=== PATIENT | female | born 1970 | race Caucasian/White ===

== ENCOUNTER 2023-04-26 07:19 | Outpatient (CLI) | payer BC, SELFPAY ==
--- OUTSIDE RECORDS SUMMARY | 2023-04-26 07:28 | XMS_ITS | Encounter Summary ---
Author Name Unknown Organization [facility] Address [address] [place] [address]. [place] [address] Care Team Providers Care Crane Ladle Person Name Role Phone Omi Steven MD Primary Care Provider + Reason for Visit * Auth/Cert (Routine) Specialty Diagnoses / Procedures Referred By Virgilio t Referred To Contact Surgery Diagnoses Interstitial cystitis PFD (pelvic floor dysfunction) Interstitial cystitis [N30.10] PFD (pelvic floor dysfunction) [M62.89] Procedures [place] CYSTOURETHROSCOPY INJ CHEMODENERVATION BLADDER CYSTOSCOPIC TRIAMCINOLONE KENALOG INJECTIONS [facility] [address] [place] [address] Referral ID Status Reason Start Date Expiration Date Visits Re quested Visits Authorized [id number] 1 1 Encounter Details Date Type Department Care Team (Latest Contact Info) Description 07/09/2022 1:32 PM CDT - 07/09/2022 5:52 PM CDT Hospital Encounter [facility] Phase II [address] [place] [address] Christopher Mccullough MD [address] [place] [address] S/P urological surgery (Primary Dx) Discharge Disposition: Home or Self Care Social History Tobacco Use Types Packs/Day Years Used Date Smoking Tobacco: Never Smokeless Tobacco: Never Alcohol Use Standard Drinks/Week Comments Yes 0 (1 standard drink = 0.6 oz pure alcohol) Alcoholic Drinks/day: social-last drink last Wednesday Sex and Gender Information Value Date Recorded Sex Assigned at Not on file Gender Identity Not on file Sexual Orientation Not on file COVID-19 Exposure Response Date Recorded In the last 10 days, have yo u been in contact with someone who was confirmed or suspected to have Coronavirus/COVID-19? No / Unsure 07/08/2022 4:26 PM CDT documented as of this encounter Last Filed Vital Signs Vital Sign Reading Time Taken Comments Blood Pressure 110/67 07/09/2022 5:03 PM CDT Pulse 68 07/09/2022 5:03 PM CDT Temperature 36.4 ??C (97.5 ??F) 07/09/2022 4 :20 PM CDT Respiratory Rate 17 07/09/2022 5:03 PM CDT Oxygen Saturation 100% 07/09/2022 5:0 3 PM CDT Inhaled Oxygen Concentration - - Weight 62.1 kg (136 lb 14.4 oz) 023 1:34 PM CDT Height 168 cm (5' 6.14) 06/22/2022 7:0 0 AM CDT Per [facility] Body Mass Index 22 06/22/2022 7:00 AM CDT documented in this encounter Discharge Instructions * Attachments The following attachments cannot be sent through Care Everywhere. * After Your Surgery: Discharge Instructions (Amharic) documented in this encounter Medications at Time of Discharge Medication Sig Dispensed Refills Start Date End Date estradiol (ESTRACE) 1 MG tablet Take 1 mg by mouth daily 0 hydrocortisone 2.5 % cream Apply topically 2 times daily 0 ibuprofen (ADVIL/MOTRIN) 800 MG tabletIndications:S/ P urological surgery Take 1 tablet (800 mg) by mouth every 6 hours as needed for other (mild and/or inflammatory pain) 30 tablet 0 07/09/2022 loratadine 10 MG capsule Take 10 mg by mouth daily 0 meclizine 25 MG CHEW Take 25 mg by mouth 3 times daily as needed for dizziness 0 ondansetron (ZOFRAN ODT) 4 MG ODT tabIndications:S/P urological surgery Take 1 tablet (4 mg) by mouth every 8 hours as needed for nausea 4 tablet 0 07/09/2022 oxyCODONE (ROXICODONE) 5 MG tabletIndications:S/ P urological surgery Take 1-2 tablets (5-10 mg) by mouth every 4 hours as needed for moderate to severe pain 10 tablet 0 07/09/2022 progesterone (PROMETRIUM) 100 MG capsule Take 100 mg by mouth At Bedtime 0 tiZANidine (ZANAFLEX) 4 MG tablet Take 4 mg by mouth nightly as needed for muscle spasms 0 nitroFURantoin macrocrystal-monohyd rate (MACROBID) 100 MG capsuleIndications:S /P urological surgery Take 1 capsule (100 mg) by mouth 2 times daily for 7 days 14 capsule 0 07/09/2022 07/16/2022 documented as of this encounter H&P Notes * Christopher Mccullough MD - 07/09/2022 3:36 PM CDT I have reviewed the surgical (or preoperative) H&P that is linked to this encounter, and examined the patient. There are no significant changes Clinical Conditions Present on Arrival: Clinically Significant Risk Factors Present on Admission Source Note - Outside, Provider - 07/07/2022 10:13 AM CDT documented in this encounter Miscellaneous Notes * Op Note - Christopher Mccullough MD - 07/09/2022 5:32 PM CDT Procedure Date: 07/09/2022 PREOPERATIVE DIAGNOSES: 1. Interstitial cystitis. 2. Pelvic pain. 3. Pelvic floor dysfunction. POSTOPERATIVE DIAGNOSES: same PROCEDURE: Cystoscopic injections of Kenalog. SURGEON: Christopher Mccullough MD FINDINGS: No Hunner's ulcers were identified; however, there was some slight glomerulations noted. DESCRIPTION OF PROCEDURE: After assuring informed consent, the patient was taken to the operating room. She was prepped and draped in the usual manner, placed in the dorsal lithotomy position, feet in stirrups. The patient was positioned by wv, ensuring there is no excess flexion of the hips or theknees. At this point, the cystoscope was inserted. Mild were glomerulations noted in the posterior bladder wall. There were no Hunner's ulcers identified. Forty mg of Kenalog was mixed with 20 mL of normal saline. At this point, 21 mL injections were placed in the posterior bladder wall, particularly in the areas where the glomerulations were. This concluded the procedure. Instruments, needle, and sponges were correct x2. ESTIMATED BLOOD LOSS: Minimal. COMPLICATIONS: None. PATHOLOGY: None. DISPOSITION: The patient was taken to recovery room in stable condition. Christopher Mccullough MD MT: [email or web address]/[email or web address] Name: NISH CHAMBERLAIN Account: [id number] : 1970 Procedure Date: 07/09/2022 Document: [id number] documented in this encounter Plan of Treatment Not on file documented as of this encounter Procedures Procedure Name Priority Date/Time Associated Diagnosis Comments CYSTOSCOPY, WITH BOTULINUM TOXIN INJECTION 07/09/2022 3:46 PM CDT Interstitial cystitis PFD (pelvic floor dysfunction) Case Notes Triamcinolone ordered (from pharmacy) - to be released Special Needs Use same kit as cystoscopic botulinum toxin injections. Kenalog 40mg/ml-5 vials available. Dinora milner to assist documented in this encounter Visit Diagnoses Diagnosis S/P urological surgery- Primary documented in this encounter Administered Medications Inactive Administered Medications - up to 3 most recent administrations Medication Order MAR Action Action Date Dose Rate Site acetaminophen (TYLENOL) tablet 975 mg 975 mg, Oral, ONCE, On Jocelyn 07/09/22 at 1400, For 1 dose, Give within 60 min of procedure. Hold if patient has taken acetaminophen within 4 hours. Maximum acetaminophen dose from all sources = 75 mg/kg/day not to exceed 4 grams/day., Pre-procedure $Given 07/09/2022 2:46 PM CDT 975 mg clindamycin (CLEOCIN) 900 mg in 50 mL NS intermittent infusion Routine, 900 mg, Intravenous, SEE ADMIN INSTRUCTIONS, Starting on Jocelyn 07/09/22 at 1345, Intra-Op Dose.?Give every 6 hours while patient in surgery, starting 6 hours after pre-op dose.?, Indications: Perioperative Pharmacoprophylaxis, Pre-procedure $Given 07/09/2022 3:46 PM CDT 900 mg $Given 07/09/2022 2:56 PM CDT 900 mg 100 mL/hr diazepam (VALIUM) tablet 5 mg 5 mg, Oral, ONCE, On Jocelyn 07/09/22 at 1800, For 1 dose, Patient request valium once prior to discharge. She notes this is typically done post op and helps her pain control. $Given 07/09/2022 5:03 PM CDT 5 mg ibuprofen (ADVIL/MOTRIN) tablet 800 mg 800 mg, Oral, ONCE, On Jocelyn 07/09/22 at 1700, For 1 dose, Administer when patient tolerating oral intake AND 6 hours after last ketorolac (TORADOL) dose, if given. Give with food. $Given 07/09/2022 5:03 PM CDT 800 mg lactated ringers infusion at 100 mL/hr, Intravenous, CONTINUOUS, Pre-procedure, Starting on Jocelyn 07/09/22 at 1400, Until Jocelyn 07/09/22 at 1616 Restarted 07/09/2022 4:12 PM CDT $New Bag 07/09/2022 2:49 PM CDT 100 mL/hr oxyCODONE (ROXICODONE) tablet 10 mg 10 mg, Oral, ONCE PRN, severe pain, Starting on Jocelyn 07/09/22 at 1625, For 1 dose, Max: 5 mg for opioid-na??ve patient. Use caution with patient Age GREATER than 65 years, COPD, or CrCl LESS than 50 mL/min., Phase ll oxyCODONE (ROXICODONE) tablet 5 mg 5 mg, Oral, ONCE PRN, moderate pain, Starting on Jocelyn 07/09/22 at 1625, For 1 dose, Max: 5 mg for opioid-na??ve patient., Phase ll sterile water (bottle) irrigation PRN, Intra-procedure, Starting on Jocelyn 07/09/22 at 1619, Until Jocelyn 07/09/22 at 1952 $Given 07/09/2022 4:19 PM CDT 1,000 mLs Operative Site/Surgi pete Site triamcinolone (KENALOG-40) injection 0-200 mg 0-200 mg (0-5 mL), Other, TELEPHONE OPERATOR TO O.R., Starting on Jocelyn 07/09/22 at 1415, For 1 dose triamcinolone (KENALOG-40) injection PRN, Starting on Jocelyn 07/09/22 at 1602, Intra-procedure $Given 07/09/2022 4:02 PM CDT 40 mg Operative Site/Surgi pete Site documented in this encounter Active and Recently Administered Medications Times are shown in CDT. Scheduled Medication Order 07/07/2022 07/08/2022 07/09/2022 acetaminophen (TYLENOL) tablet 975 mg (COMPLETED) 975 mg, Oral, ONCE, On Jocelyn 07/09/22 at 1400, For 1 dose, Give within 60 min of procedure. Hold if patient has taken acetaminophen within 4 hours. Maximum acetaminophen dose from all sources = 75 mg/kg/day not to exceed 4 grams/day., Pre-procedure 1446 ($Given - Provi alyce: Melissa Noyola RN) acetaminophen (TYLENOL) tablet 975 mg 975 mg, Oral, ONCE, On Jocelyn 07/09/22 at 2100, For 1 dose, Administer 6 hours after pre-op dose, if given. Maximum acetaminophen dose from all sources = 75 mg/kg/day not to exceed 4 grams/day. clindamycin (CLEOCIN) 900 mg in 50 mL NS intermittent infusion (CANCELED) Routine, 900 mg, Intravenous, SEE ADMIN INSTRUCTIONS, Starting on Jocelyn 07/09/22 at 1345, Intra-Op Dose.?Give every 6 hours while patient in surgery, starting 6 hours after pre-op dose.?, Indications: Perioperative Pharmacoprophylaxis, Pre-procedure 1456 ($Given - Provi alyce: Melissa Noyola RN)1546 ($Given - Provider: Lesley Cardona APRN PANEL SEWER - Comment: Given in OR, not given in pre-op) diazepam (VALIUM) tablet 5 mg (COMPLETED) 5 mg, Oral, ONCE, On Jocelyn 07/09/22 at 1800, For 1 dose, Patient request valium once prior to discharge. She notes this is typically done post op and helps her pain control. 1703 ($Given - Provi alyce: Anna Smith RN) gentamicin (GARAMYCIN) 320 mg in sodium chloride 0.9 % 50 mL intermittent infusion (COMPLETED) Routine, 320 mg (5 mg/kg ? 64 kg), Intravenous, PRE-OP/PRE-PROCEDURE, Starting on Jocelyn 07/09/22 at 1345, For 1 dose, Give first dose within 1 hour PRIOR to incision., Indications: Perioperative Pharmacoprophylaxis, Pre-procedure 1559 ($New Bag - Pro vider: Lesley Cardona APRN CRNA) ibuprofen (ADVIL/MOTRIN) tablet 800 mg (COMPLETED) 800 mg, Oral, ONCE, On Jocelyn 07/09/22 at 1700, For 1 dose, Administer when patient tolerating oral intake AND 6 hours after last ketorolac (TORADOL) dose, if given. Give with food. 1703 ($Given - Provi alyce: Anna Smith RN) triamcinolone (KENALOG-40) injection 0-200 mg 0-200 mg (0-5 mL), Other, TELEPHONE OPERATOR TO O.R., Starting on Jocelyn 07/09/22 at 1415, For 1 dose Continuous Medication Order 07/07/2022 07/08/2022 07/09/2022 lactated ringers infusion (CANCELED) at 100 mL/hr, Intravenous, CONTINUOUS, Pre-procedure, Starting on Jocelyn 07/09/22 at 1400, Until Jocelyn 07/09/22 at 1616 1449 ($New Bag - Pro vider: Melissa Noyola RN)1611 (Paused - Provider: Lesley Cardona APRN CRNA - Comment: Switch to gravity)1612 (Restarted - Provider: Lesley Cardona APRN CRNA) PRN Medication Order 07/07/2022 07/08/2022 07/09/2022 oxyCODONE (ROXICODONE) tablet 10 mg 10 mg, Oral, ONCE PRN, severe pain, Starting on Jocelyn 07/09/22 at 1625, For 1 dose, Max: 5 mg for opioid-na??ve patient. Use caution with patient Age GREATER than 65 years, COPD, or CrCl LESS than 50 mL/min., Phase ll oxyCODONE (ROXICODONE) tablet 5 mg 5 mg, Oral, ONCE PRN, moderate pain, Starting on Jocelyn 07/09/22 at 1625, For 1 dose, Max: 5 mg for opioid-na??ve patient., Phase ll oxyCODONE (ROXICODONE) tablet 5 mg 5 mg, Oral, ONCE PRN, other, pain control or improvement in physical function.??, Starting on Jocelyn 07/09/22 at 1625, For 1 dose, Hold oral PRN dose for analgesic side effects. Notify provider to assess for uncontrolled pain or analgesic side effects. Hold while on IV PROFESSOR OF PHYSICS or with regular IV opioid dosing. sterile water (bottle) irrigation PRN, Intra-procedure, Starting on Jocelyn 07/09/22 at 1619, Until Jocelyn 07/09/22 at 1952 1619 ($Given - Provi alyce: Christopher Mccullough MD - Comment: 800ml used) triamcinolone (KENALOG-40) injection PRN, Starting on Jocelyn 07/09/22 at 1602, Intra-procedure 1602 ($Given - Provi alyce: Christopher Mccullough MD - Comment: Cystoscopic mixed with 20ml Saline by Dinora Milner) documented in this encounter Care Teams Crane Ladle Person Relationship Specialty Start Date End Date Omi Steven MD [address] [facility] [address] [place] [address] PCP - General message broker developer 03/12/16 documented as of this encounter
--- OUTSIDE RECORDS SUMMARY | 2023-04-26 07:28 | XMS_ITS | Encounter Summary ---
Author Name Unknown Organization [facility] Address [address] [place] [address]. [place] [address] Care Team Providers Care Distribution Superintendent Name Role Phone Omi Steven MD Primary Care Provider + Encounter Details Date Type Department Care Team (Latest Contact Info) Description 07/08/2022 Travel Social History Tobacco Use Types Packs/Day Years [...] PM CDT documented as of this encounter Plan of Treatment Not on file documented as of this encounter Visit Diagnoses Not on filedocumented in this encounter Care Teams Distribution Superintendent Relationship Specialty Start Date End Date Omi Steven MD [address] [place] [address] PCP - General school resource officer 03/12/16 documented as of this encounter
--- OUTSIDE RECORDS SUMMARY | 2023-04-26 07:28 | XMS_ITS | Encounter Summary ---
Author Name Unknown Organization [facility] Address [address] [place] [address]. [place] [address] Care Team Providers Care Sound Controller Name Role Phone Omi Steven MD Primary Care Provider + Reason for Visit * Auth/Cert (Routine) Specialty Diagnoses / Procedures Referred By Virgilio t Referred To Contact Surgery Diagnoses Interstitial cystitis PFD (pelvic floor dysfunction) Interstitial cystitis [N30.10] PFD (pelvic floor dysfunction) [M62.89] Procedures MS CYSTOURETHROSCOPY INJ CHEMODENERVATION BLADDER CYSTOSCOPIC TRIAMCINOLONE KENALOG INJECTIONS n Periop Services [address] [place] [id number] Referral ID Status Reason Start Date Expiration Date Visits Re quested Visits Authorized [id number] 1 1 Encounter Details Date Type Department Care Team (Late st Contact Info) Description 07/09/2022 3:46 PM CDT Anesthesia Event [address] [id number] Vinh Weiss MD [facility] [address], Paul Huerta MD [address] [place] [id number] Anesthesia Record Procedure Summary Procedure Name Responsible Anesthesiologist Anesthesia Start Time Anesthesia Stop Time CYSTOSCOPIC TRIAMCINOLONE KENALOG INJECTIONS (Urethra) Vinh Weiss MD 07/09/22 1546 07/09/22 1620 Events Date Time Event Comment 07/09/2022 1454 KINESEOLOGIST Ready for Procedure 1458 1546 An Start 1546 An Start Data 1546 AN REASSESS I attest that I have identified and re-evaluated the patient immediately before the induction of anesthesia and I am satisfied that the anesthetic plan is suitable for the patient's condition and procedure. The first vital signs recorded are pre- induction. Lesley Cardona APRN KINESEOLOGIST 1553 Anesthesia Ready for Procedu re 1612 an stop data 1620 An Stop Electronically signed by Lesley Cardona APRN KINESEOLOGIST on July 09, 2022 4:20 PM Meds Name Total midazolam 1mg/mL 2 mg fentaNYL (SUBLIMAZE) injection 100 mcg propofol 10 mg/mL 30 mg propofol drip mcg/kg/min 130.41 mg dexamethasone 10 mg/mL 4 mg ondansetron 2mg/mL 4 mg clindamycin (CLEOCIN) 900 mg in 50 mL NS intermittent infusion 900 mg gentamicin (GARAMYCIN) 320 m g in sodium chloride 0.9 % 50 mL intermittent infusion 320 mg lactated ringers infusion 600 mL * Agents Name NO HELIOX O2 N2O Air Exp Sevoflurane Exp Isoflurane Exp Desflurane Exp N2O O2 Delivery Device Ins Sevoflurane Ins Isoflurane Ins Desflurane O2 Auxiliary * Blood No blood administrations on file. Lines, Drains, and Airways Type Details Placement Removal Peripheral IV 07/09/22; 1440; 20 G ; Distal, Right, Posterior; Lower forearm; Chlorhexidine; None; 1; Tolerated well 07/09/22 1440 by Melissa Noyola, NILSA 07/09/22 1751 by Raven Aldana RN Urethral Catheter 07/09/22; 1604; No; /GI/DRAFTER SEISMOGRAPH Pelvic Procedure; 16 fr 07/09/22 1604 by Bernard Cruz RN 07/09/22 1852 by Inpatient, Nurse documented in this encounter Social History Tobacco Use Types Packs/Day Years [...] PM CDT documented as of this encounter OR Notes * Anesthesia Postprocedure Evaluation - Vinh Weiss MD - 07/09/2022 4:56 PM CDT Patient: Nish Polanco Procedure: Procedure(s): CYSTOSCOPIC TRIAMCINOLONE KENALOG INJECTIONS Anesthesia Type: MAC Note: Disposition: Outpatient Postop Pain Control: Uneventful Sign Out: Well controlled pain PONV: No Neuro/Psych: Uneventful Sign Out: Acceptable/Baseline neuro status Airway/Respiratory: Uneventful Sign Out: Acceptable/Baseline resp. status CV/Hemodynamics: Uneventful Sign Out: Acceptable CV status; No obvious hypovolemia; No obvious fluid overload Other NRE: NONE DID A NON-ROUTINE EVENT OCCUR? No Last vitals: Vitals Value Taken Time BP 100/56 07/09/22 1645 Temp 36.4 ??C (97.5 ??F) 07/09/22 1620 Pulse 72 07/09/22 1655 Resp 16 07/09/22 1645 SpO2 98 % 07/09/22 1655 Vitals shown include unvalidated device data. Electronically Signed By: Vinh Weiss MD July 09, 2022 4:56 PM * Anesthesia Preprocedure Evaluation - Vinh Weiss MD - 07/09/2022 2:56 PM CDT Anesthesia Pre-Procedure Evaluation Patient: Nish Polanco : 1970 Procedure : Procedure(s): CYSTOSCOPIC TRIAMCINOLONE KENALOG INJECTIONS Past Medical History: Diagnosis Date ??? Bladder ulcer ??? Chronic interstitial cystitis ??? Dyslipidemia ??? Leukocytosis ??? Prediabetes Past Surgical History: Procedure Laterality Date ? ? BACK SURGERY 1999 & 2002 microdiscectomy L4-5, L5-S1 ??? BLADDER INSTILLATION 03/29/2015 kenalog injection in bladder ??? INNER EAR SURGERY Right 03/29/1987 titanium insert ??? SINUS SURGERY ??? TONSILLECTOMY 03/29/2013 Allergies Allergen Reactions ??? Chocolate Other (See Comments) congestion ??? Nuts Other (See Comments) Congestion Specifically peanuts and coconuts ??? Other Environmental Allergy Other (See Comments) Trees, grasses and ragweed More so during spring ??? Adhesive Tape Rash ??? Ceftin Rash ??? Eggs Or Egg-Derived Products [Chicken-Derived Products (Egg)] Other (See Comments) Nasal congestion ??? Latex Rash Social History Tobacco Use ??? Smoking status: Never ??? Smokeless tobacco: Never Vaping Use ??? Vaping status: Not on file Substance Use Topics ??? Alcohol use: Yes Comment: Alcoholic Drinks/day: social-last drink last Wednesday Wt Readings from Last 1 Encounters: 07/09/22 62.1 kg (136 lb 14.4 oz) Anesthesia Evaluation Pt has had prior anesthetic. ROS/MED HX ENT/Pulmonary: - neg pulmonary ROS Neurologic: (+) migraines, Cardiovascular: - neg cardiovascular ROS METS/Exercise Tolerance: Hematologic: - neg hematologic ROS Musculoskeletal: - neg musculoskeletal ROS GI/Hepatic: - neg GI/hepatic ROS Renal/Genitourinary: Endo: - neg endo ROS Psychiatric/Substance Use: - neg psychiatric ROS Infectious Disease: - neg infectious disease ROS Malignancy: - neg malignancy ROS Other: - neg other ROS Physical Exam Airway airway exam normal Mallampati: I TM distance: > 3 FB Neck ROM: full Mouth opening: > 3 cm Respiratory Devices and Support Dental (+) Minor Abnormalities - some fillings, tiny chips Cardiovascular cardiovascular exam normal Rhythm and rate: regular and normal Pulmonary pulmonary exam normal breath sounds clear to auscultation OUTSIDE LABS: CBC: Lab Results Component Value Date WBC 7.9 10/25/2012 HGB 12.7 10/25/2012 HCT 38.4 10/25/2012 PLT 331 10/25/2012 BMP: Lab Results Component Value Date NA 141 10/25/2012 POTASSIUM 3.5 10/25/2012 CHLORIDE 99 10/25/2012 CO2 27 10/25/2012 BUN 10 10/25/2012 CR 0.68 10/25/2012 GLC 113 (H) 10/25/2012 COAGS: Lab Results Component Value Date INR 0.96 10/25/2012 POC: Lab Results Component Value Date BGM 114 (H) 10/25/2012 HCGS Negative 10/25/2012 HEPATIC: No results found for: ALBUMIN, PROTTOTAL, ALT, AST, GGT, ALKPHOS, BILITOTAL, BILIDIRECT, DALLAS OTHER: Lab Results Component Value Date DAIJA 8.8 10/25/2012 Anesthesia Plan ASA Status: 1 NPO Status: NPO Appropriate Anesthesia Type: MAC. - Reason for MAC: immobility needed Consents Anesthesia Plan(s) and associated risks, benefits, and realistic alternatives discussed. Questions answered and patient/admissions representative(s) expressed understanding. - Discussed: - Discussed with: Patient - Extended Intubation/Ventilatory Support Discussed: No. Postoperative Care Pain management: Oral pain medications. PONV prophylaxis: Ondansetron (or other 5HT-3), Dexamethasone or Solumedrol, Background Propofol Infusion Comments: Vinh Weiss MD documented in this encounter Miscellaneous Notes * Anesthesia Care Transfer Note - Lesley Cardona APRN KINESEOLOGIST - 07/09/2022 4:20 PM CDT Patient: Nish Polanco Procedure: Procedure(s): CYSTOSCOPIC TRIAMCINOLONE KENALOG INJECTIONS Diagnosis: Interstitial cystitis [N30.10] PFD (pelvic floor dysfunction) [M62.89] Diagnosis Additional Information: No value filed. Anesthesia Type: MAC Note: Oropharynx: oropharynx clear of all foreign objects and spontaneously breathing Level of Consciousness: awake and drowsy Oxygen Supplementation: face mask Level of Supplemental Oxygen (L/min / FiO2): 4 Independent Airway: airway patency satisfactory and stable Dentition: dentition unchanged Vital Signs Stable: post-procedure vital signs reviewed and stable Report to RN Given: handoff report given Patient transferred to: Phase II Handoff Report: Identifed the Patient, Identified the Reponsible Provider, Reviewed the pertinent medical history, Discussed the surgical course, Reviewed Intra-OP anesthesia mangement and issues during anesthesia, Set expectations for post-procedure period and Allowed opportunity for questions andacknowledgement of understanding Vitals: Vitals Value Taken Time BP 100/53 07/09/22 1620 Temp 36.4 ??C (97.5 ??F) 07/09/22 1620 Pulse 84 07/09/22 1620 Resp 16 07/09/22 1620 SpO2 99 % 07/09/22 1620 Electronically Signed By: Lesley Cardona APRN CRNA July 09, 2022 4:20 PM documented in this encounter Plan of Treatment Not on file documented as of this encounter Visit Diagnoses Not on filedocumented in this encounter Administered Medications Inactive Administered Medications - up to 3 most recent administrations Medication Order MAR Action Action Date Dose Rate Site clindamycin (CLEOCIN) 900 mg in 50 mL NS intermittent infusion Routine, 900 mg, Intravenous, SEE ADMIN INSTRUCTIONS, Starting on Jocelyn 07/09/22 at 1345, Intra-Op Dose.?Give every 6 hours while patient in surgery, starting 6 hours after pre-op dose.?, Indications: Perioperative Pharmacoprophylaxis, Pre-procedure $Given 07/09/2022 3:46 PM CDT 900 mg $Given 07/09/2022 2:56 PM CDT 900 mg 100 mL/hr dexamethasone PF (DECADRON) injection Intravenous, PRN, Administer over 1 Minutes, Starting on Jocelyn 07/09/22 at 1600, Anesthesia Intra-op $Given 07/09/2022 4:00 PM CDT 4 mg fentaNYL (PF) (SUBLIMAZE) injection Intravenous, PRN, Administer over 3-5 Minutes, Starting on Jocelyn 07/09/22 at 1550, Anesthesia Intra-op $Given 07/09/2022 4:03 PM CDT 50 mcg $Given 07/09/2022 3:50 PM CDT 50 mcg gentamicin (GARAMYCIN) 320 mg in sodium chloride 0.9 % 50 mL intermittent infusion Routine, 320 mg (5 mg/kg ? 64 kg), Intravenous, PRE-OP/PRE-PROCEDURE, Starting on Jocelyn 07/09/22 at 1345, For 1 dose, Give first dose within 1 hour PRIOR to incision., Indications: Perioperative Pharmacoprophylaxis, Pre-procedure $New Bag 07/09/2022 3:59 PM CDT 320 mg lactated ringers infusion at 100 mL/hr, Intravenous, CONTINUOUS, Pre-procedure, Starting on Jocelyn 07/09/22 at 1400, Until Jocelyn 07/09/22 at 1616 Restarted 07/09/2022 4:12 PM CDT $New Bag 07/09/2022 2:49 PM CDT 100 mL/hr midazolam (VERSED) injection Intravenous, Administer over 2 Minutes, PRN, Starting on Jocelyn 07/09/22 at 1546, Anesthesia Intra-op $Given 07/09/2022 3:46 PM CDT 2 mg ondansetron (ZOFRAN) injection Intravenous, PRN, Administer over 2-5 Minutes, Starting on Jocelyn 07/09/22 at 1600, Anesthesia Intra-op $Given 07/09/2022 4:00 PM CDT 4 mg propofol (DIPRIVAN) infusion Intravenous, CONTINUOUS PRN, Starting on Jocelyn 07/09/22 at 1550, Anesthesia Intra-op $New Bag 07/09/2022 3:50 PM CDT 150 mcg/kg/min 55.89 mL/hr propofol (DIPRIVAN) injection 10 mg/mL vial Intravenous, PRN, Starting on Jocelyn 07/09/22 at 1550, Anesthesia Intra-op $Given 07/09/2022 3:50 PM CDT 30 mg documented in this encounter Care Teams Sound Controller Relationship Specialty Start Date End Date Omi Steven MD [address] [place] [address] [place] [id number] PCP - General boilermaker apprentice 03/12/16 documented as of this encounter
--- OUTSIDE RECORDS SUMMARY | 2023-04-26 07:28 | XMS_ITS | Clinical Summary ---
Author Name Unknown Organization [facility] Address [address] [place] [address]. [place] [address] Care Team Providers Care Terminal Makeup Operator Name Role Phone Omi Steven MD Primary Care Provider + Allergies Active Allergy Reactions Criticality Noted Date Comments Adhesive Tape Rash Low 07/08/2022 Ceftin Rash Low 10/25/2012 Chocolate Other (See Comments) 07/09/2022 congestion Chicken-Derived Products (Egg) Other (See Comments) Low 07/08/2022 Nasal congestion Latex Rash Low 07/08/2022 Nuts Other (See Comments) 07/09/2022 Congestion Specifically peanuts and coconuts Other Environmental Allergy Other (See Comments) 07/09/2022 Trees, grasses and ragweed More so during spring Medications Medication Sig Dispensed Refills Start Date End Date Status estradiol (ESTRACE) 1 MG tablet Take 1 mg by mouth daily 0 Active hydrocortisone 2.5 % cream Apply topically 2 times daily 0 Active loratadine 10 MG capsule Take 10 mg by mouth daily 0 Active meclizine 25 MG CHEW Take 25 mg by mouth 3 times daily as needed for dizziness 0 Active progesterone (PROMETRIUM) 100 MG capsule Take 100 mg by mouth At Bedtime 0 Active tiZANidine (ZANAFLEX) 4 MG tablet Take 4 mg by mouth nightly as needed for muscle spasms 0 Active ibuprofen (ADVIL/MOTRIN) 800 MG tabletIndications: S/P urological surgery Take 1 tablet (800 mg) by mouth every 6 hours as needed for other (mild and/or inflammatory pain) 30 tablet 0 07/09/2022 Active oxyCODONE (ROXICODONE) 5 MG tabletIndications: S/P urological surgery Take 1-2 tablets (5-10 mg) by mouth every 4 hours as needed for moderate to severe pain 10 tablet 0 07/09/2022 Active ondansetron (ZOFRAN ODT) 4 MG ODT tabIndications:S/P urological surgery Take 1 tablet (4 mg) by mouth every 8 hours as needed for nausea 4 tablet 0 07/09/2022 Active Active Problems Problem Noted Date Diagnosed Date Migraine variant, intractable 10/25/2012 Immunizations Name Administration Dates Next Due COVID-19 MONOVALENT 12+ (Pfizer) 01/06/2021,11/28 Influenza (H1N1) 02/13/2009 Influenza (IIV3) PF 01/09/2011,02/13/2010,2008 Influenza Intranasal Vaccine 01/07/2012 Influenza Vaccine >6 months,quad, PF 12/27/2018 Nasal Influenza Vaccine 2-49 (FluMist) 4,01/09/2013 TD,PF 7+ (Tenivac) 03/29/1991 TDAP (Adacel,Boostrix) 12/30/2006 Td (Adult), Adsorbed 05/09/2018 Social History Tobacco Use Types Packs/Day Years Used Date Smoking Tobacco: Never Smokeless Tobacco: Never Alcohol Use Standard Drinks/Week Comments Yes 0 (1 standard drink = 0.6 oz pure alcohol) Alcoholic Drinks/day: social-last drink last Wednesday Adolescent Education Answer Date Record ed Getting School Help Needed Not on file 01/03 Sex and Gender Information Value Date Recorded Sex Assigned at Not on file Gender Identity Not on file Sexual Orientation Not on file Last Filed Vital Signs Vital Sign Reading [...] Mass Index 22 06/22/2022 7:00 AM CDT Plan of Treatment Health Maintenance Due Date Last Done Comments ADVANCE CARE PLANNING 1970 ANNUAL REVIEW OF HM ORDERS 1970 CT COLONOGRAPHY 1970 FIT 1970 FLEX SIG 1970 HEPATITIS B IMMUNIZATION (1 of 3 - 3-dose series) 1970 COLONOSCOPY 07/15/1979 HIV SCREENING 1984 HEPATITIS C SCREENING 07/15/1987 LIPID 2014 ZOSTER IMMUNIZATION (1 of 2) 07/15/2019 COVID-19 Vaccine ( season) 2022 01/06/2021, 12/16/2020 INFLUENZA VACCINE (#1) 2022 9, 01/10/2014, 01/09/2013, Additional history exists PHQ-2 (once per calendar year) 2023 YEARLY PREVENTIVE VISIT 04/24/2023 04/24/2022, 04/24 MAMMO SCREENING 05/29/2023 05/28/2022, 03/0 04/2022, 12/23/2020, Additional history exists COLORECTAL CANCER SCREENING 07/29/2024 sDNA (Cologuard) 07/29/2024 07/29/2021 PAP 04/24/2025 04/24/2022, 04/24/2022 DTAP/TDAP/TD IMMUNIZATION (4 - Td or Tdap) 05/09/2028 05/09/2018, 12/30/2006, 03/29/1991 HPV IMMUNIZATION Aged Out No longer e ligible based on patient's age to complete this topic IPV IMMUNIZATION Aged Out No longer e ligible based on patient's age to complete this topic MENINGITIS IMMUNIZATION Aged Out No l onger eligible based on patient's age to complete this topic Pneumococcal Vaccine: Pediatrics (0 to 5 Years) and At-Risk Patients (6 to 64 Years) Aged Out No longer eligible based on patient's age to complete this topic RSV MONOCLONAL ANTIBODY Aged Out No l onger eligible based on patient's age to complete this topic Advance Directives For more information, please contact: [phone] Latest Code Status on File Code Status Date Activated Date Inactivated Comments Full Code 10/25/2012 4:09 PM 12/11/2020 3:11 PM Code Status History Code Status Date Activated Date Inactivated Comments Full Code 10/25/2012 11:42 AM 10/25/2012 4:09 PM Care Teams Terminal Makeup Operator Relationship Specialty Start Date End Date Omi Steven MD [address] [facility] [address] [place] [id number] PCP - General recruiting coordinator 03/12/16
--- OUTSIDE RECORDS SUMMARY | 2023-04-26 07:28 | XMS_ITS | Encounter Summary ---
Author Name Unknown Organization [facility] Address [address] [place] [address]. [place] [address] Care Team Providers Care Acoustical Material Worker Name Role Phone Omi Steven MD Primary Care Provider + Encounter Details Date Type Department Care Team (Late st Contact Info) Description 12/11/2020 Documentation Only INTERFACED REPORT Unknown, Provider Social History Tobacco Use Types Packs/Day Years [...] Exposure Response Date Recorded In the last month, have you been in contact with someone who was confirmed or suspected to have Coronavirus / COVID-19? No / Unsure 12/11/2020 3:21 PM CDT documented as of this encounter Plan of Treatment Not on file documented as of this encounter Visit Diagnoses Not on filedocumented in this encounter Care Teams Acoustical Material Worker Relationship Specialty Start Date End Date Omi Steven MD [address] [facility] [address] [place] [id number] PCP - General senior enterprise architect 03/12/16 documented as of this encounter
--- OUTSIDE RECORDS SUMMARY | 2023-04-26 07:28 | XMS_ITS | Patient Health Record ---
Author Name Unknown Organization [facility] Address [address] [place] [address] Care Team Providers Care Delivery Mgr Name Role Phone None, No PCP Primary Care Provider UnavailChristopher Franklin Unavailable [phone] Dee Rebolledo Unavailable [phone] LIZ [facility], Mammography Unavailable Unav ailable Carroll Gar Unavailable [phone] Coleen Velez Unavailable [phone] Sowyma Ford Unavailable [phone] Terrell Davis Unavailable [phone] ALLERGIES Allergen (clinical drug ingredient) Drug/Non Drug Allergy documented on EMR Reaction Allergy Type Onset Date Status cefuroxime Ceftin Unknown Drug Allergy Active RESULTS Component Value Reference Range Notes ALBUMIN Reviewed date:05/29/2022 03:25:28 PM Interpretation: Performing Lab:[facility] [address], [facility] InstituteZokiCU[address] Marcelino Waldrop Notes/Report: ALBUMIN 4.7 3.6-5.1 g/dL ESTRADIOL Reviewed date:05/29/2022 03:25:28 PM Interpretation: Performing Lab:[facility] [address], [place] SpwzRF[address] Marcelino Waldrop Notes/Report: ESTRADIOL 16 Reference Range Follicular Phase: 19-144 Mid-Cycle: 64-357 Luteal Phase: 56-214 Postmenopausal: < or = 31 Reference range established on post-pubertal patient population. No pre-pubertal reference range established using this assay. For any patients for whom low Estradiol levels are anticipated (e.g. males, pre-pubertal children and hypogonadal/post-menopausal females), the [facility] Zam[facility] [place] Estradiol, Ultrasensitive, LCMSMS assay is recommended (order code 37215). Please note: patients being treated with the drug fulvestrant (Faslodex(R)) have demonstrated significant interference in immunoassay methods for estradiol measurement. The cross reactivity could lead to falsely elevated estradiol test results leading to an inappropriate clinical assessment of estrogen status. [facility] order code [id number]-Vqqmnvyev, Ultrasensitive LC/MS/MS demonstrates negligible cross reactivity with fulvestrant. DHEA SULFATE Reviewed date:05/29/2022 03:25:28 PM Interpretation: Performing Lab:PHYLLIS [facility] [address], [place]qevQZ[address] Marcelino Waldrop Notes/Report: DHEA SULFATE 40 5-167 mcg/dL DHEA-S values fall with advancing age. For reference, the reference intervals for 31-40 year old patients are: Male: 93-415 mcg/dL Female: 19-237 mcg/dL FSH Reviewed date:05/29/2022 03:25:28 PM Interpretation: Performing Lab:PHYLL[facility] [address], SumUpWyvcYK[address] Marcelino Waldrop Notes/Report: FSH 76.9 Reference Range Follicular Phase 2.5-10.2 Mid-cycle Peak 3.1-17.7 Luteal Phase 1.5- 9.1 Postmenopausal 23.0-116.3 LH Reviewed date:05/29/2022 03:25:28 PM Interpretation: Performing Lab:PHYLL[facility] [address], SumUpHyykYJ[address] Mareclino Waldrop Notes/Report: LH 46.9 Reference Range Follicular Phase 1.9-12.5 Mid-Cycle Peak 8.7-76.3 Luteal Phase 0.5-16.9 Postmenopausal 10.0-54.7 PROLACTIN Reviewed date:05/29/2022 03:25:28 PM Interpretation: Performing Lab:PHYLLIS [facility] [address], SumUpWybdCO[address] Marcelino Waldrop Notes/Report: PROLACTIN 4.1 Reference Range Females Non- 3.0-30.0 10.0-209.0 Postmenopausal 2.0-20.0 T4, FREE Reviewed date:05/29/2022 03:25:28 PM Interpretation: Performing Lab:PHY[facility] [address], [place] CdrlQL[address] Marcelino Waldrop Notes/Report: T4, FREE 1.4 0.8-1.8 ng/dL CORTISOL, TOTAL Reviewed date:05/29/2022 03:25:28 PM Interpretation: Performing Lab:PHY[facility] [address], [place] RhoadesPavtZM[address] Marcelino Waldrop Notes/Report: CORTISOL, TOTAL 7.3 Reference Range: For 8 a.m.(7-9 a.m.) Specimen: 4.0-22.0 Reference Range: For 4 p.m.(3-5 p.m.) Specimen: 3.0-17.0 * Please interpret above results accordingly * TSH Reviewed date:05/29/2022 03:25:28 PM Interpretation: Performing Lab:PHYLL[facility] [address], [place] LgzhJH[address] Marcelino Waldrop Notes/Report: TSH 1.75 Reference Range > or = 20 Years 0.40-4.50 Ranges First trimester 0.26-2.66 Second trimester 0.55-2.73 Third trimester 0.43-2.91 T3, FREE Reviewed date:05/29/2022 03:25:29 PM Interpretation: Performing Lab:PHYLLIS [facility] [address], [place] JopqIM[address] Marcelino Waldrop Notes/Report: T3, FREE 3.6 2.3-4.2 pg/mL SEX HORMONE BINDING GLOBULIN Reviewed date:05/29/2022 03:25:29 PM Interpretation: Performing Lab:[facility]LL[facility] [address], [place] NaplVE[address] Marcelino Waldrop Notes/Report: SEX HORMONE BINDING GLOBULIN 99 17-124 nmol/ L TESTOSTERONE, TOTAL, LC/MS/M S Reviewed date:06/05/2022 11:11:24 AM Interpretation: Performing Lab:Z3E, [facility]T[address] [address], [address], FsioylmdtrVB[address] Baron Vizcaino MD Notes/Report: TESTOSTERONE, TOTAL, MS 9 2-45 ng/dL For additional information, please refer to https://education.AutomateIt .[employer]/faq/TotalTestosteroneLCMSMS (This link is being provided for informational/educational purposes only.) (Note) This test was developed and its analytical performance characteristics have been determined by [employer]. It has not been cleared or approved by the FDA. This assay has been validated pursuant to the CLIA regulations and is used for clinical purposes. [facility] med fusion [address] [address],[address] [place] [address] Baron Vizcaino MD DIHYDROTESTOSTERONE, LC/MS/M S Reviewed date:06/05/2022 11:11:24 AM Interpretation: Performing Lab:MIHIR [facility],[address] [facility] CenterCA[address] Vi Flowers MD,PhD,ALBARO Notes/Report: DIHYDROTESTOSTERONE, LC/MS/MS <5 < OR = 20 n g/dL This test was developed and its analytical performance characteristics have been determined by [facility]. It has not been cleared or approved by FDA. This assay has been validated pursuant to the CLIA regulations and is used for clinical purposes. TESTOSTERONE, FREE Reviewed date:06/05/2022 11:11:24 AM Interpretation: Performing Lab:Z3E, [facility]-L[address]Rvjthi[address] [place] [address], [address] HospitalRqmwwwxvalWA[address] Baron Vizcaino MD Notes/Report: TESTOSTERONE, FREE 0.4 0.2-5.0 pg/mL (Note) The concentration of free testosterone is derived from a mathematical model using total testosterone by LCMSMS, sex hormone binding globulin and albumin. This test was developed and its analytical performance characteristics have been determined by [facility]. It has not been cleared or approved by the FDA. This assay has been validated pursuant to the CLIA regulations and is used for clinical purposes. 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 Once a week, for 4 weeks. Patient has surgery scheduled on 07/06 and should start first session the week of 08/10/22. 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 Referred Provider Specialty Physical The sharonist General Notes Referral to [facility] , , Fax: , Britton Bo 06/10/2022 3:27:06 PM > faxed Referral Priority Routine MEDICATIONS Medication SIG (Take, Route, Frequency, Duration) Notes Start Date End Date Status valACYclovir HCl 500 MG Take 1 tablet by mouth once daily for 90 PT WILL NEED AN APPT BEFORE ANY ADDITIONAL REFILLS WILL BE SENT Active Valium Vaginally Not-Taking Valium 10 MG 1 tablet as needed vaginal Twice a day PRN pain for 14 days 06/05/2022 Active Estriol 2 mg / g m Not-Takin g Estradiol 1 MG 1 tablet Orally Once a day for 90 days 08/29/2020 Active VALIUM AND BACLOFEN SUPPOSITORY breana 4/polina 10/ket 30, sig: _insert 1 supp bid prn Active Amitriptyline HCl 75 mg qhs No t-Taking Hair, Skin & Nails N ot-Taking Progesterone 100 MG Take 1 capsule by mouth at bedtime Orally once daily for 90 days Active SOCIAL HISTORY Tobacco Use: Social History Observation Description Date Details (start date - stop date) Never Smoker NA - NA Sex Assigned At : Social History Observation Description Sex Assigned At Unknown Tobacco Use/Smoking Question Answer Notes Are you a nonsmoker PROBLEMS Problem Type ICD Code Onset Dates Problem Status W/U Status Risk SNOMED Code Notes Problem Menopausal and female climacteric states (N95.1) Active confirmed Menopause (643328185) Problem 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) Active confirmed 376321645 Problem IC (interstitial cystitis) (N30.10) Active confirmed Chronic interstitial cystitis (310128535) Problem Perimenopause (N95.1) Active confirmed [id number] VITAL SIGNS Blood pressure diastolic 68 mm Hg 05/28/2022 Height 65.5 in 05/28/2022 Blood pressure systolic 116 mm Hg 05/28/2022 Weight 142.0 lbs 05/28/2022 BMI 23.27 kg/m2 05/28/2022 Encounters Encounter Location Date Provider Diagnosis [facility] [address] [place] [address] 05/29/2022 [facility] [address] [place] [address] 05/29/2022 [facility] [address] [place] [address] 05/29/2022 [facility] [address] [place] [address] 06/03/2022 [facility] [address] [place] [address] 06/04/2022 [facility] [address] [place] [address] 06/05/2022 [facility] [address] [place] [address] 06/09/2022 [facility] [address] [place] [address] 06/23/[address] [place] [address] 06/24/2022 [facility] [address] [place] [address] 06/30/2022 [facility] [address] [place] [address] 06/02/2022 [facility] [address] [place] [address] 06/07/2022 [facility] [address] [place] [address] 08/26/2022 [facility] [address] [place] [address] 08/26/2022 [facility] [address] [place] [address] 08/29/[address] [place] [address] 05/19/2022 Dee Rebolledo Interstitial cystitis N30.10 ; Atrophy of vagina N95.2 ; Perimenopause N95.1 and Pelvic pain R10.2 [facility] [address] [place] [address] 05/28/2022 [facility] IC (interstitial cystitis) N30.10 and PFD (pelvic floor dysfunction) M62.89 [facility] [address] [place] [address] 07/13/2022 [facility] [address] [place] [address] 08/14/2022 [facility] [address] [place] [address] 08/05/2022 [facility] [address] [place] [address] 05/28/2022 [facility] Menopausal and female climacteric states N95.1 [facility] [address] [place] [address] 08/10/2022 Carroll Gar [facility] [address] [place] [address] 08/10/2022 Carroll Gar [facility] [address] [place] [address] 07/13/2022 Carroll Gar [facility] [address] [place] [address] 07/13/2022 Carroll Gar [facility] [address] [place] [address] 09/14/2022 [facility] [place] [address] [place] [address] 09/14/2022 [facility] [place] [address] [place] [address] 09/21/2022 Carroll Gar [facility] [address] [place] [address] 09/21/2022 Carroll Gar [facility] [address] [place] [address] 09/28/2022 Carroll Gra [facility] [address] [place] [address] 09/28/2022 Carroll Gar [facility] [address] [place] [address] 10/05/2022 Carroll Gar [facility] [address] [place] [address] 10/05/2022 Carroll Gar [facility] [address] [place] [address] 10/12/2022 Carroll Gar [facility] [address] [place] [address] 10/12/2022 Carroll Gar [facility] [address] [place] [address] 10/19/2022 Carroll Gar [facility] [address] [place] [address] 10/19/2022 Carroll Cong [facility] [address] [place] [address] 10/26/2022 Carroll Gar [facility] [address] [place] [address] 10/26/2022 Carroll Childersdaniel [facility] [place] [address] [place] [address] 08/17/2022 Carroll Gar [facility] [address] [place] [address] 08/17/2022 Carroll Gar [facility] [address] [place] [address] 08/25/2022 [facility] [place] [address] [place] [address] 08/25/2022 [facility] [place] [address] [place] [address] 08/31/2022 [facility] [place] [address] [place] [address] 08/31/2022 [facility] [place] [address] [place] [address] 09/07/2022 Carroll Gar [facility] [address] [place] [address] 09/07/2022 Carroll Gar [facility] [address] [place] [address] 07/20/2022 Carroll Gar [facility] [place] [address] [place] [address] 07/20/2022 Carroll Gar [facility] [address] [place] [address] 07/27/2022 Carroll Gar [facility] [address] [place] [address] 07/27/2022 Carroll Gar [facility] [address] [place] [address] 08/03/2022 Carroll Gar [facility] [place] [address] [place] [address] 08/03/2022 Carroll Gar [facility] [address] [place] [address] 07/09/2022 [facility] [address] [place] [address] 07/09/2022 [facility] [address] [place] [address] 05/28/2022 Mammography [facility] Breast cancer screening Z12.31 [facility] [address] [place] [address] 06/05/2022 [facility] PFD (pelvic floor dysfunction) M62.89 and IC (interstitial cystitis) N30.10 [facility] [address] [place] [address] 11/02/2022 [facility] [address] [place] [address] 10/05/[address] [address] 05/19/2022 Terrell Davis [facility] [address] [place] [address] 06/23/2022 Sowmyase Ford IC (interstitial cystitis) N30.[address] [address] 07/15/2022 Sowmya Molzakurt IC (interstitial cystitis) N30.[address] [address] 09/09/2022 Sowmya Molzahn [address] [address] 11/04/2022 Sowmya Logan ASSESSMENTS Encounter Date Diagnosis Assessment Notes Treatment Notes Treatment Clinical Notes 06/05/2022 IC (interstitial cystitis) (ICD-10 - N30.10) 06/05/2022 PFD (pelvic floor dysfunction) (ICD-10 - M62.89) 51 yo F with PFD secondary to IC. I reviewed with her that a call has been made from her insurance to MIX and back to us to inform that the medication would not be covered by insurance. If she does not desire to pay for the compounded suppository, I can prescribe her a valium tablet to be inserted in to the vagina. This may not work as effectively for her because it does not contain the combination of medications that the compounding prescription would provide. She understands. She is scheuled on 07/06 for cystoscopic triamcinolone injections and should proceed with these as scheduled. She is also scheduled to begin urostym. She will have to complete traditional PT for 4 weeks before beginning urostym therapy. She can complete traditional PT nearer to her if she so desires. With Pt, her pain may be exacerbated after initial sessions. This should disspate with continued sessions. She desires to proceed first with PT at [facility] as soon as possible, followed by urostym. I will prescribe her the valium tablet today. Ia will call her to move her urostym up by one month as she will begin with [facility] now. Ia can also assist her with being scheduled at [facility]. The patient may be able to discuss with Ia and her insurance about the coverage of the compounded pain suppository. 06/23/2022 IC (interstitial cystitis) (ICD-10 - N30.10) 07/15/2022 IC (interstitial cystitis) (ICD-10 - N30.10) 05/28/2022 IC (interstitial cystitis) (ICD-10 - N30.10) 51 yo F with severe PFD secondary to pre-existing IC. Upon examination, she has no prolapse. She has completed traditional PT for her pelvic floor that was unsuccessful in resolving her pain. The diagnosis of PFD was explained to the patient in depth with images. The pelvic floor muscles are contributing to the pain that she identifies upon examination. Her IC and PFD are related through visceral-somatic convergence, this was explained in depth. I also explained to her that the kegels she was doing were not hurting her. Instead, they were exercising her pelvic floor and exacerbating her pain initially due to her spasticity. She understands. For treatment, I recommend urostym pelvic floor therapy weekly for 12 weeks. The mechanism of action and benefits of this therapy were reviewed. After initial therapy sessions her pain may be exacerbated. This is to be expected and will dissipate with continued sessions. The [facility] or [facility] would be a great resource for her to add to her treatment plan as it will provide her with the collaborative care of chiropractors, physical therapists, and exercise physiologists as well as long-term maintenance of therapy. If these are not successful in reducing her pain we discussed options of pelvic floor botox or [facility]olaThe[facility] for her pelvic floor pain. Also, I recommend that she use a valium/baclofen/ketamin e vaginal suppository around the time of her treatments in order to mitigate excess pain. She should not drive or operate machinery while using this medication. In regards to her IC, we discussed options of bladder instillations, Kenalog instillations or injections, and/or the IC diet. She has hx of success in reducing her IC pain with Kenalog injections. She desires to proceed with urostym, [facility], and kenalog injections. I will prescribe her the vaginal pain suppository today. Ia will call her to schedule her for the cystoscopy and Kenalog injections. Hormonal labs will be drawn today to assess for a low level of testosterone, as low levels of hormones have a relationship to the health of vaginal and urogenital tissues. She also notes low libido, low energy, trouble focusing, and difficult weight loss. She will follow up with an PEANUT SEPARATOR in 1-2 weeks to review results and discuss treatment options. She should NOT return to taking the amitriptyline at this time. I will refer her to our Family Practice providers in regards to long-term anthistamine options for both her allergies and her IC. 05/28/2022 PFD (pelvic floor dysfunction) (ICD-10 - M62.89) 05/19/2022 Interstitial cystitis (ICD-10 - N30.10) Discussed with patient no signs of prolapse and she is very much relieved with this. No symptoms of prolapse either. Does have pelvic floor dysfunction and pain. Reviewed potential for worsening of her IC, reviewed new onset left groin pain, does not seem to have any other musculoskeletal defects. Keep appointment for next week. Anti-inflammatories as needed. 05/19/2022 Atrophy of vagina (ICD-10 - N95.2) 05/19/2022 Perimenopause (ICD-10 - N95.1) 05/28/2022 Menopausal and female climacteric states (ICD-10 - N95.1) 05/28/2022 Breast cancer screening (ICD-10 - Z12.31) 05/19/2022 Pelvic pain (ICD-10 - R10.2) 05/28/2022 Other Total face to face time is 30 minutes, with > 50% of time spent in counseling regarding diagnosis, risks and benefits of various treatment plans and expected outcomes., Portions of this note were transcribed by denice Duarte. Dr. Mccullough personally performed the history, physical exam and medical decision making; and confirmed the accuracy of the information in the transcribed note Authenticated by Dr. Mccullough. 06/05/2022 Other This visit was conducted with the use of audio and video telecommunications system that permits real time communication between the patient and provider. Patient consent for virtual visit was obtained. Originating site: [facility] location Distant site: home Start time:1 Stop time:1:20 , Portions of this note were transcribed by denice Duarte. Dr. Mccullough personally performed the history, physical exam and medical decision making; and confirmed the accuracy of the information in the transcribed note Authenticated by Dr. Mccullough. 06/23/2022 Other Food- and nutrition-related knowledge deficit related to lack of prior IC nutrition education, as evidenced by patient report of no prior education provided on trigger foods that may exacerbate bladder symptoms. Interventions: Discussed nutrition implications in IC, recommendations and next steps. Discussed diet recall, reviewed past medical hx, exercise/activity, sleep, stress. Discussed phases of IC Elimination Diet and per patient request, we will skip phase 1 and move into phase 2, the elimination diet. RD to cross reference both the IC elimination diet and [facility] Elimination Diet Food Plan for eczema and send patient recipes and resources to use while on elimination phase. Answered patient questions as able. Encouraged patient to reach out to clinic if they have further questions prior to follow up RD visit. Goals: - Start Phase 2: Elimination Diet outlined in IC Diet Guidebook - for 2-3 weeks, please track food and beverage intake using Daily Food & Beverage Diary on page 8 of guidebook and track voiding (urination) and pain using Voiding & Pain Diary on page 9 and Pain Scale on page [address] emailed patient digital versions of the diary and diet guide book and mailed hard copy of the book. - Schedule a follow up with the dietitian in 3 weeks to review diaries Total time spent with patient: 60 minutes Discuss at follow up: supplements for IC 07/15/2022 Other Food- and nutrition-related knowledge deficit related to lack of prior IC nutrition education, as evidenced by patient report of no prior education provided on trigger foods that may exacerbate bladder symptoms. Interventions: Interventions: Discussed nutrition implications in IC, recommendations and next steps. Discussed food and beverage diary and voiding diary and patterns. Explained phase 3: Testing Period of IC Elimination Diet. Answered patient questions as able. Encouraged patient to reach out to clinic if they have further questions prior to follow up RD visit. Goals: - Start Phase 3: Testing Phase outlined in IC Diet Guidebook - create a list of food you are excited to eat from the Try It section of The IC Foods List. Try one food item in a small portion the first day. If symptoms do not increase, proceed to try a larger portion the second day. If symptoms do not increase, try a couple portions the third day. If no reaction, add to Bladder Friendly Foods List! - Continue to track food and beverage intake using Daily Food & Beverage Diary on page 8 of guidebook and track voiding (urination) and pain using Voiding & Pain Diary on page 9 and Pain Scale on page 10 in guidebook. - If symptoms do not calm down, utilize the Rescue Diet. Do not consumer longer than one week. - Schedule a follow up with the dietitian in 4 weeks. Total time spent with patient: 30 minutes This visit was conducted with the use of audio and video telecommunications system that permits real time communication between the patient and provider. Patient consent for virtual visit was obtained. Originating site: [facility] location Distant site: pt home PLAN OF TREATMENT Pending Test Test Name Order Date MAMMOGRAM 05/28/2022 Insurance Providers Payer Name Payer Address Payer Phone Subscriber Number Group Number Insured Name Patient Relationship to Insured Coverage Start Date Coverage End Date [facility] [address] LARISA PARIKH [phone] [id number] Nish Polanco Self - patient is the insured MEDICAL (GENERAL) HISTORY Medical History History ICD Code interstitial cystitis anxiety HSV Surgical History Surgery Date(Month/Year) back X2 tonsilectomy ear X2
--- OUTSIDE RECORDS SUMMARY | 2023-04-26 07:28 | XMS_ITS | Clinical Summary ---
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 Role Phone Kimberly Fish DO Primary Care Provider Allergies Active Allergy Reactions Criticality Noted Date Comments Adhesive Rash Low 07/08/2022 Cefuroxime Rash 07/21/2013 Egg Other - Describe In Comment Field Low 05/09/2018 Nasal congestion Latex Rash 03/19/2014 Pollen Extracts Other - Describe In Comment Field 07/09/2022 Trees, grasses and ragweed More so during spring Theobroma Oil Other - Describe In Comment Field 07/09/2022 congestion Tree Nut Other - Describe In Comment Field 07/09/2022 Congestion Specifically peanuts and coconuts Medications Medication Sig Dispensed Refills Start Date End Date Status progesterone micronized (PROMETRIUM) 100 mg capsule TAKE 1 CAPSULE BY MOUTH EVERY DAY AT BEDTIME 0 12/10/2020 Active estradioL (ESTRACE) 1 mg tablet Take 1 mg by mouth once daily. 0 12/10/2020 Active meclizine (ANTIVERT) 25 mg tabletIndications:V ertigo Take 1 Tablet (25 mg) by mouth 3 times daily if needed for Vertigo. 30 Tablet 2 07/21/2021 Active polyethylene glycol-electrolyte (GOLYTELY) 236-22.74-6.74 -5.86 gram suspensionIndicatio ns:Encounter for screening colonoscopy Drink 2 liters (half the bottle) the day before colonoscopy and 2 liters (remaining prep) 6 hours prior to colonoscopy appointment. 4000 mL 0 11/24/2022 Active cannabidioL (EPIDIOLEX) 100 mg/mL soln oral solution Take by mouth two times daily. 0 Active Magnesium 200 mg tab Take 200 mg by mouth once daily. 0 Active hydrOXYzine HCL (ATARAX) 50 mg tablet Take 50 mg by mouth. 0 01/27/2023 Active amitriptyline (ELAVIL) 25 mg tablet Take 25 mg by mouth at bedtime. 0 02/12/2023 Active polyethylene glycoL (Miralax) 17 gram/scoop powder Mix 1 scoop in liquid then take by mouth. 0 Active tiZANidine (ZANAFLEX) 4 mg tabletIndications:M uscle spasm Take 1 Tablet (4 mg) by mouth at bedtime if needed for Muscle Spasm. 20 Tablet 0 03/26/2023 Active Active Problems Problem Noted Date Diagnosed Date Pap smear for cervical cancer screening 05/13/19 23 Overview: 03/2022 UNS Pap/HPV negative. Plan: Pap/HPV due 03/2023 Leukocytosis 03/12/2021 Dyslipidemia 02/16/2021 Overview: ASCVD 10 year risk 1.4%. Prediabetes 02/16/2021 History of ear surgery 05/09/2018 Overview: Right titanium implant Chronic interstitial cystitis 09/27/2015 Overview: Gets Kenalog injections to the bladder. Resolved Problems Problem Noted Date Diagnosed Date Resolved Date Chronic tonsillitis 01/09/2014 09/27/19 16 Encounters Date Type Department Care Team Description 04/22/2023 Travel 04/20/2023 Orders Only [facility] [address] [place] [address] Anson Myrick MD Procedure 04/14/2023 2:55 PM MONITORING COORDINATOR Preop Visit [facility] [address] [place] [address] Kimberly Fish, Pre-Op Exam (05/14/2023) 04/14/2023 Travel 03/26/2023 3:30 PM MONITORING COORDINATOR Preop Visit [facility] [address] [place] [address] Kimberly Fish, DO Preoperative Exam (DOS 04/26/23) 03/26/2023 Travel 03/02/2023 2:30 PM MONITORING COORDINATOR Office Visit [facility] [address] [place] [address] Apurva Parkinson MD Consult (Gallbladder Polyp per Dr. Myrick ) 03/02/2023 Travel 01/29/2023 Orders Only [facility] [address] [place] [address] Anson Myrick MD <No scans attached> 01/27/2023 9:45 AM CDT Ancillary Procedure [facility] [address] [place] [address] 01/27/2023 Travel from Last 3 Months Immunizations Name Administration Dates Next Due Influenza A (H1N1), Inactiva ed (Age >=3 Years) 02/13/2009 Influenza, IIV3 (Age >=3 years) 01/09/2011,02/13,01/28/2009 Influenza, IIV4 12/27/2018 Influenza, Live, Intranasal Laiv3 01/07/2012 Influenza,LAIV4 Live Intranasal (Flumist) 2013,01/09/2013,01/07/2012 Td (Age >=7 Years) 05/09/2018,03/29/1991 Tdap 12/30/2006 Family History Medical History Relation Name Comments Thyroid Disease Brother 1 Good Health Brother 2 Other Father parkinson Thyroid Disease Father Cancer-pancreatic Maternal Grandfather Clotting disorder Mother Thrombosis Mother Thyroid Disease Mother Good Health Sister Anesthesia Problem No Family History Blood Disease No Family History Relation Name Status Comments Brother 1 Alive Brother 2 Alive Father Maternal Grandfather Mother Alive Sister Alive Social History Tobacco Use Types Packs/Day Years Used Date Smoking Tobacco: Never Smokeless Tobacco: Never Tobacco Cessation:Counseling Given: Yes Alcohol Use Standard Drinks/Week Comments Yes 0 (1 standard drink = 0.6 oz pure alcohol) A few days a month; 2-3 drinks at a time PHQ-2 Answer Date Recorded PHQ-2 TOTAL SCORE 0 03/26/2023 Social Connections Answer Date Recorded Frequency of Communication with Friends and Fami ly 0 03/26/2023 Financial Resource Strain Answer Date R ecorded Difficulty of Paying Living Expenses 3 03/26/2023 Difficulty of Paying Living Expenses Not on file 03/26/2023 Food Insecurity Answer Date Recorded Worried About Running Out of Food in the Last Ye ar 1 03/26/2023 Transportation Needs Answer Date Record ed Lack of Transportation (Medical) 1 03/26/2023 Housing Stability Answer Date Recorded Unable to Pay for Housing in the Last Year 1 03/26/2023 Sex and Gender Information Value Date Recorded Sex Assigned at Not on file Gender Identity Not on file Sexual Orientation Not on file Obstetrics History Last Filed Vital Signs Vital Sign Reading Time Taken Comments Blood Pressure 100/66 04/14/2023 3:02 PM MONITORING COORDINATOR Pulse 103 04/14/2023 3:02 PM MONITORING COORDINATOR Temperature 36.7 ??C (98.1 ??F) 07/04/2021 11:18 AM C DT Respiratory Rate 16 03/18/2021 10:40 AM MONITORING COORDINATOR Oxygen Saturation 98% 04/14/2023 3:02 PM MONITORING COORDINATOR Inhaled Oxygen Concentration - - Weight 60.9 kg (134 lb 3.2 oz) 04/14/2023 3:02 P M MONITORING COORDINATOR Height 166.4 cm (5' 5.51) 03/26/2023 3:44 PM CS T Body Mass Index 21.98 03/26/2023 3:44 PM MONITORING COORDINATOR Plan of Treatment Health Maintenance Due Date Last Done Comments HIV for age 15-65 1984 Hepatitis C screening for age 18-79 07/15/1987 Zoster (shingles) series for age 50+ (1 of 2) 07/15/2019 Mammogram for age 45-75 12/23/2021 12/24/19 21 (Verified in Care Everywhere or Patient Record), 12/13/2019 (Verified in Care Everywhere or Patient Record), 03/12/2016, Additional history exists COVID-19 vaccine series ( season) 2022 01/06/2021, 12/16/2020 Pap test for age 21-65 04/24/2023 3, 03/12/2015 (Completed outside of [facility]) BMI (ht and wt on same day) for age 18+ 03/26/2024 03/26/2023, 06/22/2022, 04/24/2022, Additional history exists Depression screening for age 12+ 03/26/2024 03/26/2023, 04/24/2022, 06/12/2019, Additional history exists Fecal testing sDNA-FIT (Cologuard) for age 45-75 07/29/2024 07/29/2021 Lipids for age 45-75 04/24/2027 04/24/2022, 02/14/20 21 Tetanus booster 05/09/2028 05/09/2018, 06/2006, 03/29/1991 Tdap Completed 12/30/2006 Pneumococcal series for age 6-64 Aged Out No longer eligible based on patient's age to complete this topic Procedures Procedure Name Priority Date/Time Associated Diagnosis Comments US ABDOMEN LIMITED GALLBLADDER Routine 01/27/2023 10:06 AM CDT Gallbladder polyp Abnormal CT of the abdomen from Last 3 Months Results * US ABDOMEN LIMITED GALLBLADDER (01/27/2023 10:06 AM CDT) Anatomical Region Laterality Modality Abdomen Ultrasound 01/27/2023 1:52 PM CDT Impressions 01/27/2023 1:52 PM CDT Increased size of gallbladder polyp, now measuring 8 millimeters. Dictated by Paul Little MD @ Nov ??1 2022 ??1:52PM (Electronically Signed) ?? Narrative 01/27/2023 1:52 PM CDT For Patients: ??As a result of the Cures Act, medical imaging exams and procedure reports are released immediately into your electronic medical record. ??You may view this report before your referring provider. ??If you have questions, please contact your health care provider. INDICATION: Follow-up polyp COMPARISON: CT 01/18/2023, ultrasound 07/18/2006 TECHNIQUE: Real time knight scale imaging and color Doppler analysis was performed of the gallbladder. FINDINGS: Hyperechoic gallbladder polyp is present which has increased in size, measuring 8 x 8 x 5 millimeters, previously measuring 4 millimeters. The gallbladder wall measures 1.7 millimeters. No pericholecystic fluid. Common bile duct measures 3 millimeters. No abnormal vascularity. Procedure Note Paul Little MD - 01/27/2023 For Patients: As a result of the Cures Act, medical imagingexams and procedure reports are released immediately into your electronicmedical record. You may view this report before your referring provider.If you have questions, please contact your health care provider. INDICATION: Follow-up polyp COMPARISON: CT 01/18/2023, ultrasound 07/18/2006 TECHNIQUE: Real time knight scale imaging and color Doppler analysis was performed ofthe gallbladder. FINDINGS: Hyperechoic gallbladder polyp is present which has increased in size,measuring 8 x 8 x 5 millimeters, previously measuring 4 millimeters. Thegallbladder wall measures 1.7 millimeters. No pericholecystic fluid.Common bile duct measures 3 millimeters. No abnormal vascularity. IMPRESSION: Increased size of gallbladder polyp, now measuring 8 millimeters. Dictated by Paul Little MD @ Jan 27 2023 1:52PM (Electronically Signed) Anson Myrick MD US from Last 3 Months Advance Directives Latest Code Status on File Code Status Date Activated Date Inactivated Comments Full Code 03/20/2014 7:13 AM 03/20/2014 2:06 PM Care Teams Bulldozer Mechanic Relationship Specialty [place] [address] [place] [address] PCP - General Family Practice 03/20/21
--- OUTSIDE RECORDS SUMMARY | 2023-04-26 07:28 | XMS_ITS | Data Portability ---
Author Name Unknown Address [address] [place] [address] Phone [phone] Organization [facility], [facility] Address [address] [place] [address] Care Team Providers Care Gun Stock Maker Name Role Phone MARY BEASLEY Primary Care Provider [phone] Assessment No assessment recorded. Plan of Treatment Reminders Order Date Submit Date Provider Last Modified By Organization Details Last Modified Time Details Appointments None recorded. Lab None recorded. Referral physical therapist referral - Please call patient to schedule Pelvic Floor Physical Therapy. Thank you 2022 023 [facility], [address], [facility] [address], [place], [address], 15:36:52 Procedures None recorded. Surgeries None recorded. Imaging None recorded. Medication Orders None recorded. Patient TargetsNo targets recorded. Patient Instructions Encounter Date Encounter Id Patient Instructions Last Modified By Organization Details Last Modified Time 04/17/2022 [id number] start PT see in office with exam and cystoscopy has tried VV no change has been on elavil and stopped had installations [email or web address] Not available 04/17/2022 13:29:56 Reason for Referral Physical Therapist Referral for Pelvic and perineal pain Please call patient to schedule Pelvic Floor Physical Therapy. Thank you Referring Physician: Judy Childs, Urology, Encounter Date: 04/17/2022 Problems Name Status Onset Date Resolution Date Notes Provider Name and Address Organization Details Recorded Time Overactive bladder Active 017 N32.81 : Bladder muscle dysfunction - overactive Not Available [facility] 0 23:40:06 Chronic interstitial cystitis Active 016 N30.10 : Interstitial cystitis (chronic) without hematuria Not Available [facility] 0 02:08:40 Pain Active 016 R10.10 : Upper abdominal pain unspecified Not Available [facility] 0 02:08:40 Dysuria Active 016 R30.0 : Dysuria Not Available [facility] 0 02:08:40 Problem Notes None recorded. Procedures Surgical History Date Name Laterality Status Provider Name and Address Organization Details Recorded Time 2 Oncology colorectal scr completed Debora fuller [facility] 07/06/2022 16:01:39 1 CYSTOSCOPY (SURG) completed Miracle fuller [facility] 06/06/2020 14:20:05 0 Cystoscopy completed Not Available [facility] 0 20:50:01 9 Unlisted px urinary system completed Not Available [facility] 09/07/2019 20:50:01 7 Unlisted px urinary system completed Not Available [facility] 09/07/2019 20:50:01 7 Insert bladder catheter completed Not Available [facility] 09/07/2019 20:50:01 5 Cystoscopy w/biopsy(s) completed Not Available [facility] 09/07/2019 20:50:01 5 Cystoscopy and treatment completed Not Available [facility] 09/07/2019 20:50:01 Low back disk surgery completed Not Available [facility] 09/07/2019 20:50:01 Imaging Results None recorded. Procedure Notes None recorded. Medical Equipment None Reported. Allergies Allergen ID Allergen Name Allergen Category Reaction Reaction Severity Criticality Documentation Date Start Date Code Code System Note Provider Name and Address Organization Details Recorded Time 20690505 Ceftin medicatio n Not available Not available Not available 09/06/2019 05702 6 RxNorm Not Available [facility] 0 23:53:26 [id number] latex environme nt,medica tion Not available Not available Not available 09/06/2019 98950 91 RxNorm Not Available [facility] 0 23:53:26 Medications Name Sig Start Date Stop Date Status Note LastModified by Organization Details LastModified Time amitripty line 75 mg tablet Take 1 tablet by mouth every night 04/17 completed HN: Patient reports no longer taking Not Available Not Available Not Available valacyclo vir 500 mg tablet TAKE 1 TABLET BY MOUTH ONCE DAILY active Not Available Not Available No t Available estradiol 1 mg tablet TAKE 1 TABLET BY MOUTH ONCE DAILY active Not Available Not Available No t Available meclizine 25 mg tablet TAKE 1 TABLET BY MOUTH THREE TIMES DAILY NEEDED FOR VERTIGO active Not Available Not Available No t Available Claritin- D 12 Hour 5 mg-120 mg tablet,ex tended release TAKE 1 TABLET BY MOUTH EVERY 12 HOURS active Not Available Not Available No t Available estradiol 0.01% (0.1 mg/gram) vaginal cream 1mg 1/day active Not Available Not Available No t Available ondansetr on 4 mg disintegr ating tablet PLACE 1 TABLET (4 MG) ON THE TONGUE EVERY 8 HOURS IF NEEDED FOR NAUSEA/V OMITING. active Not Available Not Available No t Available progester one micronize d 100 mg capsule TAKE 1 CAPSULE BY MOUTH ONCE DAILY AT BEDTIME FOR 90 DAYS active Not Available Not Available No t Available Bactrim DS 800 mg-160 mg tablet Take 1 tablet every 12 hours by oral route. 04/17 completed HN: Patient reports no longer taking Not Available Not Available Not Available progester one 100 mg vaginal supposito ry 100mg 1/day active Not Available Not Available No t Available Vitals None Recorded Social History Question Answer Notes LastModified by Organizat ion Details LastModified Time Tobacco Smoking Status Never Smoker Not Available Health Note 04/14/2022 14:44:04 What Is Your Level Of Alcohol Consumption? None Information not available 04/17/2022 What Is Your Level Of Caffeine Consumption? None [email or web address] Information not available 04/14/2022 How Much Tobacco Do You Chew? None [email or web address] Information not available 04/14/2022 Do You Or Have You Ever Used E-cigarettes Or Vape? Never Used Electronic Cigarettes [email or web address] Information not available 04/14/2022 Race White [email or web address] Information n ot available 09/07/2019 Marital Status [email or web address] Informati on not available 09/07/2019 What Was The Date Of Your Most Recent Tobacco Screening? 04/17/2022 [email or web address] Information not available 04/14/2022 Do You Or Have You Ever Used Smokeless Tobacco? Never Used Smokeless Tobacco [email or web address] Information not available 04/14/2022 Do You Use Any Illicit Or Recreational Drugs? No [email or web address] Information not available 04/14/2022 Has Tobacco Cessation Counseling Been Provided? Yes [email or web address] Information not available 04/17/2022 On What Date Was Tobacco Cessation Counseling Provided? 04/17/2022 Information not available 04/17/2022 Do You Or Have You Ever Used Any Other Forms Of Tobacco Or Nicotine? No [email or web address] Information not available 04/17/2022 Sex: Female Functional Status None recorded. Mental Status None recorded. Family History Relationship Description Onset Age of this Age Resolved Age Notes Notes:Thyroid Disorder:Mothe r Arthritis:Mother Medical History Condition Response Sexually Transmitted Infection N Diabetes N Bleeding Disorder N High Blood Pressure N Kidney Stones N Cancer N Lung Disease N Depression N High Cholesterol N GERD/Acid Reflux N Heart Disease N Gynecological HistoryNo gynecological history recorded. Obstetrics History GPAL:G 0 P 0 0 0 0 Immunizations Vaccine Type Date Status Provider Name and Address Organization Details Recorded Time SARS-COV-2 (COVID-19) vaccine, UNSPECIFIED 01/06/2021 completed NGOZI fuller [facility] 04/17/2022 13:04:12 influenza, live, intranasal, quadrivalent 01/10/2014 completed NGOZI fuller [facility] 04/17/2022 13:04:11 Influenza, seasonal, injectable 01/09/2011 completed NGOZI fuller [facility] 04/17/2022 13:04:11 COVID-19, mRNA, LNP-S, PF, 30 mcg/0.3 mL dose 01/06/2021 completed NGOZI fuller [facility] 04/17/2022 13:04:11 influenza, live, intranasal 01/07/2012 completed NGOZI fuller [facility] 04/17/2022 13:04:11 Influenza, seasonal, injectable, preservative free 01/28/2009 completed NGOZI fuller, [facility] 04/17/2022 13:04:11 influenza, live, intranasal, quadrivalent 01/09/2013 completed NGOZI fuller, [facility] 04/17/2022 13:04:12 Novel [id number], all formulations 02/13/2009 completed NGOZI fuller, [facility] 04/17/2022 13:04:12 Td (adult), 5 Lf tetanus toxoid, preservative free, adsorbed 03/29/1991 completed NGOZI fuller, [facility] 04/17/2022 13:04:12 Tdap 12/30/2006 completed NGOZI fuller, [facility] 04/17/2022 13:04:12 COVID-19, mRNA, LNP-S, PF, 30 mcg/0.3 mL dose [facility] 13:04:12 influenza, injectable, quadrivalent 12/27/2018 completed NGOZI fuller, [facility] 04/17/2022 13:04:12 Influenza, seasonal, injectable [facility]13/2010 [facility] 13:04:12 Td (adult), 2 Lf tetanus toxoid, preservative free, adsorbed [facility]09/2018 [facility] 13:04:12 Past Encounters Encounter ID Performer Location Encounter Start Date Encounter Closed Date Diagnosis/Indication [id number] Judy Childs MD [facility] [address] [place] [address] 04/17/2022 13:02:14 04/17/2022 13:53:49 Chronic interstitial cystitis Pelvic and perineal pain Health Concerns Section Related Observation LastModified by Organization Detai ls LastModified Time None Recorded Concern Status LastModified by Organization Details LastModified Time None Recorded Advance Directives Directive None Recorded Payers Encounter Date Sequence Insurance Name Policy Number Policy Julian Covered Member ID Julian Member ID Guarantor Name 04/17/2022 1 [facility] [id number] Nish Polanco [id number] Nish Polanco Notes Date Note Type Note Provider Name and Address Organization Details Recorded Time 04/17/2022 text/html HPI Notes: 51 yo female last seen over 1.[address] Sotelo. hx of ulcerative IC. hx of kenalog injections in the OR with relief. DF 14 times nocturia 2-3 leakage none feels like there is fire burning pain which lets her know feels that she has dysuria when voids and does not empty all the way, as if she credes after she voids can be a fair amount caffeine: none BMs: QOD, gets pelvic pain with bowels --soft with diet and painful. not on meds in the past was on elavil--does not note a difference off it more pelvic pain sits at home and does not move as much did see PT in the past. did vaginal valium in the past was on claritin D in the past for some allergies and was told to stop it This visit was conducted using the [employer] video conferencing technology due to the COVID-19 crisis. Prior to conducting our video e-health visit, the patient was apprised of the risks, benefits and alternatives to video visits including but not limited to inadequate image resolution, interrupted video visits due to technological limitations, delays in medical evaluation and treatment due to deficiencies or failures of equipment, failure of security protocols resulting in a breach of privacy of personal medical information and a lack of access to complete medical records resulting in not fully informed decisions. Also, because of the COVID-19 pandemic, it was not possible for the patient to sign the privacy regulations, HIPAA release and assignment of benefits forms. The patient was given the opportunity to ask questions about these policies and gave verbal acknowledgement and approval of these policies as well as to hold this meeting using video technology. Lastly, the patient agreed to allowing their medication history to be pulled from a national pharmacy database to facilitate and coordinate their care. Judy Childs MD [address] [place] [address],[address], [place], [address], [facility] 04/17/2022 13:31:02 OBGyn Episode No OBEpisode recorded.
--- OUTSIDE RECORDS SUMMARY | 2023-04-26 07:28 | XMS_ITS | Encounter Summary ---
Author Name Unknown Organization [facility] Address [address] [place] [address]. [place] [address] Care Team Providers Care Commercial Loan Processor Name Role Phone Omi Steven MD Primary Care Provider + Reason for Visit * Auth/Cert (Routine) Specialty Diagnoses / Procedures Referred By Virgilio t Referred To Contact Surgery Diagnoses Interstitial cystitis PFD (pelvic floor dysfunction) Interstitial cystitis [N30.10] PFD (pelvic floor dysfunction) [M62.89] Procedures IN CYSTOURETHROSCOPY INJ CHEMODENERVATION BLADDER CYSTOSCOPIC TRIAMCINOLONE KENALOG INJECTIONS [facility] [address] [place] [address] Referral ID Status Reason Start Date Expiration Date Visits Re quested Visits Authorized [id number] 1 1 Encounter Details Date Type Department Care Team (Late st Contact Info) Description 07/09/2022 3:15 PM CDT - 07/09/2022 4:30 PM CDT Surgery [facility] [address] [place] [address] Christopher Mccullough MD [address] [place] [address] CYSTOSCOPIC TRIAMCINOLONE KENALOG INJECTIONS Surgery Details Date/Time Status Location OR Service Patient Class Case Class Case Type Trauma Case? 07/09/22 3:15 PM Posted [facility] OR [facility] OR Gynecology Same Day Surgery Elective Panel 1 Procedure LRB Anes Op Region Wound Class Comments CYSTOSCOPIC TRIAMCINOLONE KE NALOG INJECTIONS N/A MAC Urethra II-Clean Contaminated Surgeon Surgeon Role Service Panel Christopher Mccullough MD Primary Gynecology 1 Case Notes Triamcinolone ordered (from pharmacy) - to be released Special Needs Use same kit as cystoscopic botulinum toxin injections. Kenalog 40mg/ml-5 vials available. Dinora milner to assist documented in this encounter Social History Tobacco [...] Sign Reading Time Taken Comments Blood Pressure 111/62 07/09/2022 4:30 PM CDT Pulse 79 07/09/2022 4:30 PM CDT Temperature 36.4 ??C (97.5 ??F) 07/09/2022 4 :20 PM CDT Respiratory Rate 18 07/09/2022 4:30 PM CDT Oxygen Saturation 97% 07/09/2022 4:3 0 PM CDT Inhaled Oxygen Concentration - - Weight 62.1 kg (136 lb 14.4 oz) 023 1:34 PM CDT Height 168 cm (5' 6.14) 06/22/2022 7:0 0 AM CDT Per [facility] Body Mass Index 22 06/22/2022 7:00 AM CDT documented in this encounter Discharge Instructions * Attachments The following attachments cannot be sent through Care Everywhere. * After Your Surgery: Discharge Instructions (Serbian) documented in this encounter Medications at Time [...] in stirrups. The patient was positioned by me, ensuring there is no excess flexion of [...] MD MT: viki/jack Name: NISH CHAMBERLAIN Account: [id number] : 1970 Procedure Date: 07/09/2022 Document: [id number] documented in this encounter Plan of Treatment [...] Visit Diagnoses Diagnosis S/P urological surgery- Primary Interstitial cystitis Chronic interstitial cystitis PFD (pelvic floor dysfunction) Pelvic muscle wasting documented in this encounter Administered Medications Inactive [...] 0-200 mg 0-200 mg (0-5 mL), Other, TOP CASE ASSEMBLER TO O.R., Starting on Jocelyn 07/09/22 at [...] RN)1546 ($Given - Provider: Lesley Cardona APRN CRNA - Comment: Given in OR, not given in pre-op) diazepam (VALIUM) tablet 5 mg (COMPLETED) 5 mg, Oral, ONCE, On Jocelyn 07/09/22 at 1800, For 1 dose, Patient request valium once prior to discharge. She notes this is typically done post op and helps her pain control. 170 ($Given - Provi alyce: Anna Smith RN) [...] (TORADOL) dose, if given. Give with food. 170 ($Given - Provi alyce: Anna Smith RN) triamcinolone (KENALOG-40) injection 0-200 mg 0-200 mg (0-5 mL), Other, TOP CASE ASSEMBLER TO O.R., Starting on Jocelyn 07/09/22 at 1415, For 1 dose Continuous Medication Order 07/07/2022 07/08/2022 07/09/2022 lactated ringers infusion (CANCELED) at 100 mL/hr, Intravenous, CONTINUOUS, Pre-procedure, Starting on Jocelyn 07/09/22 at 1400, Until Jocelyn 07/09/22 at 1616 1449 ($New Bag - Pro vider: Melissa Noyola RN)1611 (Paused - Provider: Lesley Cardona APRN CRNA - Comment: Switch to gravity)161 (Restarted - Provider: Lesley Cardona APRN CRNA) [...] analgesic side effects. Hold while on IV THREADING MACHINE SETTER or with regular IV opioid dosing. sterile [...] Milner) documented in this encounter Care Teams Commercial Loan Processor Relationship Specialty Start Date End Date Omi Steven MD [address] [place], [place] [address] PCP - General leaf fat scraper 03/12/16 documented as of this encounter
--- OUTSIDE RECORDS SUMMARY | 2023-04-26 07:28 | XMS_ITS | Referral Summary ---
Author Name Unknown Organization [facility] Address [address] [place] [address]. [place] [address] Care Team Providers Care Pipe Testing Technician Name Role Phone Omi Steven MD Primary [...] 06/22/2022 7:00 AM CDT Plan of Treatment Not on file Advance Directives For more information, please contact: [phone] Latest Code Status on File Code Status Date Activated Date Inactivated Comments Full Code 10/25/2012 4:09 PM 12/11/2020 3:11 PM Code Status History Code Status Date Activated Date Inactivated Comments Full Code 10/25/2012 11:42 AM 10/25/2012 4:09 PM Care Teams Pipe Testing Technician Relationship Specialty Start Date End Date Omi Steven MD [address] [facility] [address] [place] [address] PCP - General blueprint clerk 03/12/16
--- OUTSIDE RECORDS SUMMARY | 2023-04-26 07:28 | XMS_ITS | Clinical Summary ---
Author Name Unknown Organization [facility] [employer] [facility] Address [address] [place] [phone] Phone Care Team Providers Care Director Title Name Role Phone Elsewhere, Pcp Primary Care Provider Unavailabl e Allergies Active Allergy Reactions Criticality Noted Date Comments Ceftin 10/11/2010 Medications Medication Sig Dispensed Refills Start Date End Date Status norethindrone-ethiny l estradiol (MICROGESTIN) 1-20 MG-MCG per tablet Take 1 Tab by mouth one time a day. 0 10/11/2010 Active desloratadine-pseudo ePHEDrine SR (CLARINEX-D 24 HOUR) 5-240 MG 24 hour tablet Take 1 Tab by mouth one time a day. Tablet should be swallowed whole; do not break, crush, or chew. Take with water. 0 10/11/2010 Active fluticasone propionate (FLONASE) 50 MCG/ACT nasal spray Instill 2 Sprays nasally one time a day. Shake well before use; administer to both nostrils. 1 Bottle 2 10/11/2010 Active azithromycin (ZITHROMAX Z-JORGE) 250 MG tablet Take by mouth. Take 2 tablets (500 mg) on day 1 and take 1 tablet (250 mg) on days 2-5. 6 Tab 0 10/21/2010 Active Active Problems No known active problems Social History Tobacco Use Types Packs/Day Years Used Date Smoking Tobacco: Never Assessed Sex and Gender Information Value Date Recorded Sex Assigned at Not on file Gender Identity Not on file Sexual Orientation Not on file Last Filed Vital Signs Vital Sign Reading Time Taken Comments Blood Pressure 116/64 10/11/2010 12:13 PM CDT Pulse - - Temperature 36.4 ??C (97.5 ??F) 10/11/2010 12:13 PM C DT Respiratory Rate - - Oxygen Saturation - - Inhaled Oxygen Concentration - - Weight 68.3 kg (150 lb 9.6 oz) 10/11/2010 12:13 PM CDT Height 167.6 cm (5' 6) 10/11/2010 12:13 PM CDT Body Mass Index 24.31 10/11/2010 12:13 PM CDT Plan of Treatment Health Maintenance Due Date Last Done Comments CT Colonography 1970 Cervical Cancer Screening 1970 Cologuard 1970 Colonoscopy 1970 Colorectal Cancer Screening 1970 FIT/FOBT 1970 Hepatitis B Vaccine (Standin g Order) (1 of 3 - 3-dose series) 1970 Last pap w/ HPV Testing 1969 Last pap w/o HPV Testing 1970 MAMMO,SCREEN 1969 Sigmoidoscopy 1969 COVID-19 Vaccine (#1) 01/13/1970 PERTUSSIS (Standing Order) 1988 TETANUS (Standing Order) 1988 Shingrix (Zoster recombinant ) vaccine (Standing Order) (1 of 2) 07/15/2019 Influenza Vaccine Seasonal (Standing Order) (#1) 2022 HPV Vaccine (Standing Order) Aged Out No longer eligible based on patient's age to complete this topic Pneumococcal/PCV20 Vaccine: Pediatrics (2-5 yrs) and At-Risk Patients (6-64 yrs) (Standing Order) Aged Out No longer eligible b ased on patient's age to complete this topic Insurance Payer Benefit Plan / Group Subscriber ID Effective Dates Phone Address Type [place] [id number] [address] [address] [place] [address] [employer]BS Commercial Care Teams Director Title Relationship Specialty Start Date End Date Elsewhere, Pcp PCP - General 10/11/10
--- OUTSIDE RECORDS SUMMARY | 2023-04-26 07:28 | XMS_ITS | Continuity of Care Document ---
Author Name Unknown Organization [facility] Address [address] [place] [address] Phone Care Team Providers Care Assistant Refinery Operator Name Role Phone Jaciel Dos Santos MD Unavailable Unavailable Advance Directives Directive Yes / No Effective Date File Name No Information Encounters Encounter Description Practice Location Reason(s) For Visit Diagnoses Date Provider Providers Copied on Encounter [facility], [address] [place] [address], [place], [address], [place] tel:[phone] [facility] No Information [address]. [facility], [address], [address], [id number], [place]. tel:[phone] Family History Family Member Type Diagnosis Age At Onset No Information Payers Payer name Insurance type Covered green party ID Authoriza tion(s) No Information Social History Type Description Quantity Date Captured Comments Sex Female Smoking Status No Information Chief Complaint And Reason For Visit No Information Reason For Referral Reason For Referral No Information History Of Present Illness Encounter Date Complaint History Of Prese nt Illness No Information Functional Status Date Functional Assessmen t No Information Instructions Date Instruction Additional Infor mation No Information Assessments Type Assessment Date No Information Patient Care Teams Name Effective Dates (start - stop) Status Members No Information
--- NOTE | 2023-04-26 08:47 | W.ANESCHARGE ---
Anesthesia Charges Start Date/Time Anesthesia Start Date: 04/26/23 Anesthesia Start Time: 08:11 Stop Date/Time Anesthesia Stop Date: 04/26/23 Anesthesia Stop Time: 08:45
--- NOTE | 2023-04-26 08:47 | W.ANESCHARGE ---
Anesthesia Charges Start Date/Time Anesthesia Start Date: 04/26/23 Anesthesia Start Time: 08:11 Stop Date/Time Anesthesia Stop Date: 04/26/23 Anesthesia Stop Time: 08:45
[2023-04-26] MEDS: TIZANIDINE HCL 4 MG TABLET PO (09:40)
== END 2023-04-26 07:20 | disposition home or self-care (01) ==
LOC: OP CLINIC 07:25
PROVIDERS: PCP Family Medicine; Visit Provider Internal Medicine Gastroenterology
DX: Z12.11 Encounter for screening for malignant neoplasm of colon (principal); K22.89 Other specified disease of esophagus; K31.89 Other diseases of stomach and duodenum; R10.13 Epigastric pain; R76.8 Other specified abnormal immunological findings in serum; R14.0 Abdominal distension (gaseous)
CPT/HCPCS: 00813; 43239; 45378; 88305; A9270; J2704